=== PATIENT | female | born 1980 | race Caucasian/White ===

== ENCOUNTER 2018-06-04 09:44 | Emergency (ER) | payer OTHER ==
[2018-06-04 12:01] VITALS: BP 138/81
--- NOTE | 2018-06-04 12:06 | UC ---
Neck Pain HPI - HPI Summary HPI Summary: 37 yo female presents with neck pain s/p fall yesterday. She tells me that she was walking in socks and slipped on a step - tumbled down about 9 steps. Did hit her head. No LOC. Was able to get to her feet following the fall. Had mild discomfort in her neck, left elbow, and left leg at the time. Today neck pain is worse. She has not taken anything OTC for her discomfort. She is ambulatory without assistance. Placed in a chapis collar at triage. Denies headache, dizziness, vision changes, numbness, tingling, or weakness. - History of Current Complaint Chief Complaint: UCGeneralIllness Stated Complaint: BODY ACHES Time Seen by Provider: 06/04/18 12:06 Hx Obtained From: Patient Hx Last Menstrual Period: 05/24/18 Onset/Duration: Sudden Onset Severity: Moderate Pain Intensity: 7 Pain Scale Used: 0-10 Numeric - Allergies/Home Medications Allergies/Adverse Reactions: Allergies Allergy/AdvReac Type Severity Reaction Status Date / Time erythromycin base Allergy stomach Verified 06/04/18 12:03 upset Home Medications: Home Medications Labetalol TAB* [Trandate TAB*] 100 mg .ROUTE DAILY 06/04/18 [History Confirmed 06/04/18] Loratadine 10 mg PO 06/04/18 [History] Montelukast Sodium TAB* [Singulair TAB*] 10 mg PO DAILY 06/04/18 [History Confirmed 06/04/18] Venlafaxine EXT RELEASE CAP* [Effexor Xr CAP*] 75 mg PO DAILY 06/04/18 [History Confirmed 06/04/18] PMH/Surg Hx/FS Hx/Imm Hx Cardiovascular History: Hypertension Psychological History: Anxiety, Depression - Surgical History Surgical History: Yes Surgery Procedure, Year, and Place: [place],lymph node,hernia - Family History Known Family History: Positive: None - Social History Occupation: Employed Full-time Lives: With Family Alcohol Use: Rare Substance Use Type: None Smoking Status (MU): Never Smoked Tobacco Review Of Systems Constitutional: Positive: Negative Skin: Positive: Negative Eyes: Positive: Negative Respiratory: Positive: Negative Cardiovascular: Positive: Negative Gastrointestinal: Positive: Negative Musculoskeletal: Positive: Other: - Neck pain Neurological: Positive: Negative Psychological: Positive: Negative All Other Systems Reviewed And Are Negative: Yes Physical Exam - Summary Physical Exam Summary: GENERAL: NAD. WDWN. No pain distress. SKIN: No rashes, sores, ulcers, masses, lesions. HEENT: Head: AT/NC. No racoon eyes or spangler's sign. CHEST: CTAB. No r/r/w. No accessory muscle use. Breathing comfortably and in no distress. CV: RRR. Without m/r/g. Pulses intact. Brisk cap refill. ABDOMEN: Soft. NTTP. Bowel sounds present MSK: Mild TTP at c-spine, t-spine, and paraspinal muscles. No specific vertebral tenderness. FROM at c-spine with mild pain in all directions. Negative spurlings. FROM in B/L UEs and LEs with symmetric strength. NEURO: A&Ox3. 3 word recall, remote, recent memory, ability to follow 2-step directions, and attention intact. CN: II: Peripheral salmeron intact. Vision normal. III, IV, : EOMI. No nystagmus. PERRLA. V: Sensations intact and symmetric. Opens mouth and clenches teeth. VII: No facial asymmetry. Forehead wrinkles. Grins, shuts eyes, frowns, puffs cheeks. VIII: Hearing intact to finger rub. IX, X: Swallows and coughs. Uvula midline. XI: Shrugs shoulders. Turns head against resistance. XII: No tongue deviation Vectjp-bm-iacs are intact. Gait with normal base. Romberg: maintains balance, no pronator drift. Normal speech. No facial drooping. PSYCH: Age appropriate behavior. Triage Information Reviewed: Yes Vital Signs: Initial Vital Signs Temp 98.7 F 06/04/18 11:56 Pulse 74 06/04/18 11:56 Resp 16 06/04/18 11:56 BP 138/81 06/04/18 11:56 Pulse Ox 100 06/04/18 11:56 Vital Signs Reviewed: Yes Neck Pain Course/Dx - Course Course Of Treatment: CT c spine: IMPRESSION: STRAIGHTENING OF THE CERVICAL LORDOSIS. NO ACUTE OSSEOUS INJURY TO THE CERVICAL SPINE. CT t spine: IMPRESSION: NO ACUTE OSSEOUS INJURY TO THE THORACIC SPINE. CT brain: IMPRESSION: There is no evidence of intracranial mass or hemorrhage. Discussed results with pt. Suspect contusion vs strain. Advised to rest and apply heat to her neck. Take ibuprofen for discomfort. F/u with PCP for a recheck in 1 week. - Differential Dx/Diagnosis Provider Diagnosis: Neck pain, Fall Discharge - Sign-Out/Discharge Documenting (check all that apply): Patient Departure All imaging exams completed and their final reports reviewed: Yes - Discharge Plan Condition: Stable Disposition: HOME Patient Education Materials: Cervical Strain (DC) Referrals: No Primary Care Phys,NOPCP [Primary Care Provider] - Additional Instructions: If you develop a fever, shortness of breath, chest pain, new or worsening symptoms - please call your PCP or go to the ED. Your blood pressure was high at todays visit. Please see your primary provider within 4 weeks for recheck and re-evaluation. 1) Rest and take ibuprofen 600mg every 6-8 hours as needed for pain 2) Call your primary doctor to schedule a follow up appointment in 1 week for a recheck of your symptoms - Billing Disposition and Condition Condition: STABLE Disposition: Home
== END 2018-06-04 13:43 | disposition home or self-care (01) ==
LOC: UCEAST 09:44
DX: M54.2 Cervicalgia (principal); I10 Essential (primary) hypertension; F32.9 Major depressive disorder, single episode, unspecified; Z88.1 Allergy status to other antibiotic agents; Z79.899 Other long term (current) drug therapy; W10.9XXA Fall (on) (from) unspecified stairs and steps, initial encounter; Y92.9 Unspecified place or not applicable
CPT/HCPCS: 70450; 72125; 72128; 84702; 99211; G0463

== ENCOUNTER 2019-07-25 05:49 | Day surgery (SDC) | payer OTHER ==
[2019-07-25] MEDS ORDERED: Buffered Lidocaine 1% SYRIN* 1 ML/SYRINGE INTRADERM ONE (06:31)
[2019-07-25] MEDS ORDERED: Bupivacaine 0.25% SDV* 30 ML ONE (07:05)
[2019-07-25] MEDS ORDERED: Propofol* 10 MG/ML 20 ML BTL ONE (07:29)
[2019-07-25] MEDS ORDERED: HYDROmorphone INJ1* 1 MG/ML SYRINGE ONE ×2 (07:30→09:28)
[2019-07-25] MEDS ORDERED: Naloxone* 0.4 MG/ML 1 ML VIAL IV PRN (07:40)
[2019-07-25] MEDS ORDERED: Ondansetron INJ* 2 MG/ML VIAL IV PRN (07:40)
[2019-07-25] MEDS ORDERED: Metoclopramide IV* 5 MG/ML 2 ML VIAL IV PRN (07:40)
[2019-07-25] MEDS ORDERED: HYDROmorphone INJ1* 1 MG/ML SYRINGE IV PRN (07:40)
[2019-07-25] MEDS ORDERED: Ondansetron INJ* 2 MG/ML VIAL ONE (07:49)
[2019-07-25] MEDS ORDERED: Dexamethasone IV* 4 MG/ML 1 ML (4 MG) ONE (07:49)
[2019-07-25 08:49] VITALS: BP 116/50
--- NOTE | 2019-07-25 23:29 | OP ---
DATE OF OPERATION: 07/25/19 - [facility] DATE OF : 76 SURGEON: Loyd Lucas MD NURSES ASSISTANT: MIR Michele ANESTHESIOLOGIST: Dr. Mcadams. ANESTHESIA: General. PRE-OP DIAGNOSES: 1. Left wrist carpal tunnel syndrome. 2. Left median nerve compression in the proximal forearm. POST-OP DIAGNOSES: 1. Left wrist carpal tunnel syndrome. 2. Left median nerve compression in the proximal forearm. OPERATIVE PROCEDURE: 1. Left endoscopic carpal tunnel release. 2. Left median nerve decompression in the proximal forearm with release of the lacertus fibrosus. INDICATIONS: Ms. Richardson is 38. We have done the same surgery on the right. She has gotten very nice result from that. She has the similar symptoms on the left and wishes to proceed with surgery. ESTIMATED BLOOD LOSS: 2 mL. COMPLICATIONS: None. FINDINGS: See above and below. DESCRIPTION OF PROCEDURE: Ms. Richardson was seen in the preoperative holding area. The correct site, side, and procedures were identified. We came back to the operating room where the arm was prepped and draped in the usual fashion and a time- out was performed. The arm was exsanguinated with the Esmarch and the tourniquet inflated. I made a 1- cm incision just proximal to the wrist flexion crease and just ulnar to the palmaris longus tendon location. The distal antebrachial fascia was spread transversely and split transversely bluntly with the tenotomy scissors. The carpal tunnel was dilated open. The MicroAire endoscopic carpal tunnel system was introduced. When I had it in the appropriate location, I elevated the blade and the release was carried out from distal to proximal. Once I confirmed the release distally, I used the tenotomy scissors to relieve the remainder of the distal antebrachial fascia proximally. At this point, the decompression was very nice. Things were looking very good. The wound was irrigated out. Skin was closed with 4-0 Prolene suture and a Steri-Strip. I then made a 3 cm incision just over the lacertus fibrosus. Proximally this was a transverse incision. Dissection was carried down bluntly and full- thickness flaps were raised off of the fascia. The lacertus fibrosus was identified. The tenotomy scissors were used to release that. I continued the release distally by releasing the fascia and then released it proximally. At this point, everything was looking very nice. Everything was fully decompressed. The wound was irrigated out. The skin was closed with 4-0 Monocryl and Steri-Strips. 0.25% Marcaine was infiltrated all about the operative areas. Soft dressings were applied and she was taken to the recovery room in stable condition. [id number]/[facility] #: [id number] [place]
== END 2019-07-25 10:03 | disposition home or self-care (01) ==
LOC: OR 05:49
PROVIDERS: ATTEND Orthopaedic Surgery Hand Surgery
DX: G56.02 Carpal tunnel syndrome, left upper limb (principal); G56.12 Other lesions of median nerve, left upper limb; I10 Essential (primary) hypertension; J45.909 Unspecified asthma, uncomplicated; M79.7 Fibromyalgia; E78.00 Pure hypercholesterolemia, unspecified; F41.8 Other specified anxiety disorders
CPT/HCPCS: 81025; J1100; J1170; J2405; J2704; J3490